=== PATIENT | female | born 1990 | race Caucasian/White ===

== ENCOUNTER 2022-10-22 22:50 | Emergency (ER) | payer MEDICAID ==
[2022-10-22] MEDS ORDERED: Acetaminophen 325 MG Tab PO ONE (23:13)
[2022-10-22 23:38] LABS: BASOPHILS PERCENT AUTO 0.2 % (0.0-1.5); EOSINOPHILS ABSOLUTE AUTO 0.1 K/uL (0.0-0.7); EOSINOPHILS PERCENT AUTO 1.1 % (0.0-7.0); HEMATOCRIT 38.4 % (36.0-46.0); HEMOGLOBIN 13.2 g/dL (12.0-16.0); LYMPHOCYTES PERCENT AUTO 29.3 % (16.0-40.0); MEAN CORPUSCULAR HEMOGLOBIN 29.5 pg (27.0-32.0); MEAN CORPUSCULAR HGB CONC 34.4 g/dL (31.0-37.0); MEAN CORPUSCULAR VOLUME 85.7 fL (80.0-98.0); MONOCYTES ABSOLUTE AUTO 0.6 K/uL (0.0-0.8); MONOCYTES PERCENT AUTO 5.4 % (0.0-15.0); NEUTROPHILS ABSOLUTE AUTO 6.5 K/uL (1.4-5.7); NRBC ABSOLUTE 0 K/uL; PLATELET COUNT,PLT 344 K/uL (150-400); RED BLOOD CELL COUNT 4.48 M/uL (4.30-5.90); WHITE BLOOD CELL COUNT,WBC 10.17 K/uL (4.0-11.0)
[2022-10-23 00:24] LABS: ALANINE AMINOTRANSFERASE,ALT 28 IU/L (14-63); ALBUMIN 3.8 g/dL (3.4-5.0); ALKALINE PHOSPHATASE 87 U/L (46-116); ASPARTATE AMNIOTRANSFERASE,AST 14 IU/L (15-37); BILIRUBIN TOTAL 0.2 mg/dL (0.2-1.0); BLOOD UREA NITROGEN,BUN 14 mg/dL (7.0-18.0); CALCIUM 9.5 mg/dL (8.5-10.1); CARBON DIOXIDE,CO2 26.9 mmol/L (21.0-32.0); CHLORIDE,CL 104 mmol/L (98-107); CREATININE 0.8 mg/dL (0.6-1.0); EST CRCL DRUG DOSING (CG) 72.52 mL/min; ESTIMATED GFR 100 mL/min (>60); GLUCOSE RANDOM 107 mg/dL (74-106); HCG QUANTITATIVE < 1.0 mIU/mL; POTASSIUM,K 3.9 mmol/L (3.5-5.1); PROTEIN TOTAL,TP 7.5 g/dL (6.4-8.2); SODIUM,NA 140 mmol/L (136-145)
== END 2022-10-23 01:26 | disposition home or self-care (01) ==
LOC: MW.ED 22:50
DX: N93.9 Abnormal uterine and vaginal bleeding, unspecified (principal); Z88.2 Allergy status to sulfonamides
CPT/HCPCS: 36415; 80053; 84702; 85025; 86850; 86900; 86901; 99284; A9270; 99283

== ENCOUNTER 2024-01-23 10:19 | Emergency (ER) | payer MEDICAID ==
[2024-01-23 11:48] LABS: CORONAVIRUS COVID-19 NAA NEGATIVE (NEGATIVE); INFLUENZA A NAA NEGATIVE (NEGATIVE); INFLUENZA B NAA NEGATIVE (NEGATIVE); RESPIRATORY SYNCYTIAL VIR NAA NEGATIVE (NEGATIVE)
== END 2024-01-23 11:22 | disposition home or self-care (01) ==
LOC: MW.ED 10:19
DX: L50.9 Urticaria, unspecified (principal); B96.0 Mycoplasma pneumoniae [M. pneumoniae] as the cause of diseases classified elsewhere; R09.81 Nasal congestion; R00.0 Tachycardia, unspecified; F17.210 Nicotine dependence, cigarettes, uncomplicated; Z88.2 Allergy status to sulfonamides; Z88.1 Allergy status to other antibiotic agents; Z75.8 Other problems related to medical facilities and other health care
CPT/HCPCS: 0241U; 99283

== ENCOUNTER 2024-01-26 09:17 | Inpatient (IN) | payer MEDICAID ==
[2024-01-26] MEDS: methylPREDNISolone Sodium Succinate 125 MG/2 ML SDV IVPUSH STA ×2 (10:30→16:18)
[2024-01-26] MEDS: Magnesium Sulfate/Water 2 GM in Premix Bag 1 BAG IV STA (10:30)
[2024-01-26] MEDS: Albuterol 0.083% 2.5 MG/3 ML Neb Soln NEB STA (10:45)
[2024-01-26] MEDS: Albuterol/Ipratropium 3.0-0.5 MG/3 ML Neb Soln NEB STA (10:45)
[2024-01-26 11:00] LABS: BASOPHILS ABSOLUTE AUTO 0.04 K/uL (0.00-0.20); BASOPHILS PERCENT AUTO 0.4 % (0.0-1.0); EOSINOPHILS ABSOLUTE AUTO 0.16 K/uL (0.00-0.45); EOSINOPHILS PERCENT AUTO 1.4 % (0.0-6.0); HEMATOCRIT 35.4 % (37.0-47.0); IMMATURE GRAN ABSOLUTE AUTO 0.08 K/uL (0.00-0.05); IMMATURE GRAN PERCENT AUTO 0.7 % (0.0-0.4); LYMPHOCYTES ABSOLUTE AUTO 1.92 K/uL (1.00-4.80); LYMPHOCYTES PERCENT AUTO 17.2 % (24.0-44.0); MEAN CORPUSCULAR HEMOGLOBIN 28.4 pg (28.0-32.0); MEAN CORPUSCULAR HGB CONC 33.9 g/dL (32.0-36.0); MEAN CORPUSCULAR VOLUME 83.7 fL (83.0-99.0); MEAN PLATELET VOLUME 9.8 fL (9.4-12.3); MONOCYTES ABSOLUTE AUTO 0.69 K/uL (0.00-0.80); MONOCYTES PERCENT AUTO 6.2 % (0.0-8.0); NEUTROPHILS PERCENT AUTO 74.1 % (41.0-71.0); PLATELET COUNT,PLT 388 K/uL (150-400); RED BLOOD CELL COUNT 4.23 M/uL (4.10-5.30); WHITE BLOOD CELL COUNT,WBC 11.19 K/uL (3.9-11.3)
[2024-01-26 11:31] LABS: A/G RATIO 0.7 (0.9-1.6); ALANINE AMINOTRANSFERASE,ALT 43 IU/L (14-63); ALBUMIN 3.2 g/dL (3.4-5.0); ALKALINE PHOSPHATASE 83 U/L (46-116); ASPARTATE AMNIOTRANSFERASE,AST 26 IU/L (15-37); BILIRUBIN TOTAL 0.4 mg/dL (0.2-1.0); BLOOD UREA NITROGEN,BUN 7 mg/dL (7.0-18.0); CALCIUM 9.6 mg/dL (8.5-10.1); CARBON DIOXIDE,CO2 28.7 mmol/L (21.0-32.0); CHLORIDE,CL 101 mmol/L (98-107); CREATININE 0.6 mg/dL (0.6-1.0); EST CRCL DRUG DOSING (CG) 95.79 mL/min; ESTIMATED GFR 121 mL/min (>60); GLUCOSE RANDOM 107 mg/dL (74-106); POTASSIUM,K 3.8 mmol/L (3.5-5.1); PROTEIN TOTAL,TP 7.6 g/dL (6.4-8.2); SODIUM,NA 140 mmol/L (136-145)
[2024-01-26 11:36] LABS: CORONAVIRUS COVID-19 NAA NEGATIVE (NEGATIVE); INFLUENZA A NAA NEGATIVE (NEGATIVE); INFLUENZA B NAA NEGATIVE (NEGATIVE)
[2024-01-26] MEDS: Iopamidol 755 MG/ML 500 ML Multipack Bottle IVPUSH STA (12:11)
[2024-01-26] MEDS: cefTRIAXone 2 GM in Sodium Chloride 0.9% 50 ML IV STA (14:41)
[2024-01-26 15:21] LABS: LACTIC ACID 1.4 mmol/L (0.4-2.0)
[2024-01-26] MEDS ORDERED: Sodium Chloride 0.9% 10 ML Syringe FLUSH PRN (15:47)
[2024-01-26] MEDS ORDERED: Acetaminophen 325 MG Tab PO PRN (15:47)
[2024-01-26] MEDS ORDERED: Sodium Chloride 0.9% 2.5 ML Syringe FLUSH PRN (15:47)
[2024-01-26] MEDS ORDERED: Ondansetron 4 MG/2 ML SDV IVPUSH PRN (15:47)
[2024-01-26] MEDS: Famotidine 20 MG/2 ML SDV IVPUSH STA (16:18)
[2024-01-26] MEDS: diphenhydrAMINE 50 MG/ML SDV ONE (16:19)
[2024-01-26] MEDS: Sodium Chloride 0.9% 1,000 ML IV STA (16:20)
[2024-01-26] MEDS: diphenhydrAMINE 50 MG/ML SDV IVPUSH STA (16:20)
[2024-01-26] MEDS: Levofloxacin/Dextrose 5%-Water 750 MG in Premix Bag 1 BAG IV SCH (17:59)
[2024-01-26] MEDS: Enoxaparin 40 MG/0.4 ML Syringe SUBCUT SCH (18:11)
[2024-01-26] MEDS: Azithromycin 500 MG in Sodium Chloride 0.9% 250 ML IV STA (19:09)
[2024-01-26] MEDS: Benzonatate 100 MG Cap PO SCH (19:47)
[2024-01-26] MEDS: Benzonatate 100 MG Cap ONE (19:47)
[2024-01-26] MEDS ORDERED: Benzonatate 100 MG Cap PO PRN (21:28)
[2024-01-27 06:01] LABS: BASOPHILS ABSOLUTE AUTO 0.02 K/uL (0.00-0.20); BASOPHILS PERCENT AUTO 0.1 % (0.0-1.0); HEMATOCRIT 35.6 % (37.0-47.0); HEMOGLOBIN 11.7 g/dL (12.0-16.0); IMMATURE GRAN ABSOLUTE AUTO 0.43 K/uL (0.00-0.05); IMMATURE GRAN PERCENT AUTO 2.5 % (0.0-0.4); LYMPHOCYTES PERCENT AUTO 6.3 % (24.0-44.0); MEAN CORPUSCULAR HGB CONC 32.9 g/dL (32.0-36.0); MEAN CORPUSCULAR VOLUME 85.2 fL (83.0-99.0); MONOCYTES ABSOLUTE AUTO 0.36 K/uL (0.00-0.80); MONOCYTES PERCENT AUTO 2.1 % (0.0-8.0); NEUTROPHILS ABSOLUTE AUTO 15.46 K/uL (1.80-7.70); PLATELET COUNT,PLT 406 K/uL (150-400); RED BLOOD CELL COUNT 4.18 M/uL (4.10-5.30); WHITE BLOOD CELL COUNT,WBC 17.37 K/uL (3.9-11.3)
[2024-01-27 06:20] LABS: CALCIUM 9.1 mg/dL (8.5-10.1); CARBON DIOXIDE,CO2 25.8 mmol/L (21.0-32.0); CREATININE 0.7 mg/dL (0.6-1.0); EST CRCL DRUG DOSING (CG) 82.11 mL/min; POTASSIUM,K 4.1 mmol/L (3.5-5.1)
[2024-01-27] MEDS: Albuterol/Ipratropium 3.0-0.5 MG/3 ML Neb Soln NEB PRN (11:18)
[2024-01-27] MEDS ORDERED: Azithromycin 500 MG in Sodium Chloride 0.9% 250 ML IV SCH (12:00)
[2024-01-27] MEDS ORDERED: cefTRIAXone 2 GM in Sodium Chloride 0.9% 50 ML IV SCH (13:00)
[2024-01-28 06:02] LABS: HEMATOCRIT 32.7 % (37.0-47.0); HEMOGLOBIN 10.9 g/dL (12.0-16.0); MEAN CORPUSCULAR HEMOGLOBIN 28.5 pg (28.0-32.0); MEAN CORPUSCULAR HGB CONC 33.3 g/dL (32.0-36.0); MEAN CORPUSCULAR VOLUME 85.6 fL (83.0-99.0); MEAN PLATELET VOLUME 9.7 fL (9.4-12.3); NRBC ABSOLUTE 0.02 K/uL (0.00-0.02); NRBC PERCENT 0.1 /100WBC (0.0-0.2); PLATELET COUNT,PLT 390 K/uL (150-400); RED BLOOD CELL COUNT 3.82 M/uL (4.10-5.30); WHITE BLOOD CELL COUNT,WBC 18.76 K/uL (3.9-11.3)
[2024-01-28 06:19] LABS: CALCIUM 8.8 mg/dL (8.5-10.1); CARBON DIOXIDE,CO2 28.4 mmol/L (21.0-32.0); CREATININE 0.7 mg/dL (0.6-1.0); EST CRCL DRUG DOSING (CG) 82.11 mL/min; POTASSIUM,K 4.1 mmol/L (3.5-5.1)
[2024-01-28 06:31] LABS: BAND ABSOLUTE MAN 0.75; BAND PERCENT MAN 4 %; LYMPHOCYTES ABSOLUTE MAN 2.63 K/uL (1.00-4.80); LYMPHOCYTES PERCENT MAN 14 % (24-44); MONOCYTES ABSOLUTE MAN 0.38 K/uL (0.00-0.80); MONOCYTES PERCENT MAN 2 % (0-8); SEG NEUTROPHILS ABSOLUTE MAN 15.01 K/uL (1.80-7.70); SEG NEUTROPHILS PERCENT MAN 80 % (41-71)
[2024-01-28 08:02] LABS: BORDETELLA PARAPERT IS1001 Not Detected (Not Detected)
[2024-01-29 20:02] LABS: QNTIFERON MITOGEN MIN NIL 0.36 IU/mL; QNTIFERON NIL 0.01 IU/mL; QNTIFERON TB GOLD PLUS Indeterminate (Negative)
== END 2024-01-28 12:40 | disposition home or self-care (01) | DRG 193 ==
LOC: MW.ED 09:17 → MW.MS 14:25
PROVIDERS: ADMIT Internal Medicine; ATTEND Internal Medicine
DX: J15.7 Pneumonia due to Mycoplasma pneumoniae (principal); J18.9 Pneumonia, unspecified organism; U07.0 Vaping-related disorder; J96.01 Acute respiratory failure with hypoxia; F17.210 Nicotine dependence, cigarettes, uncomplicated; Z88.0 Allergy status to penicillin; Z75.8 Other problems related to medical facilities and other health care; Z88.2 Allergy status to sulfonamides; Z88.1 Allergy status to other antibiotic agents; Z90.89 Acquired absence of other organs; Z90.49 Acquired absence of other specified parts of digestive tract
CPT/HCPCS: 0240U; 36415; 71275; 80048; 80053; 83605; 84484; 84703; 85025; 86480; 87040; 87070; 87205; 87389; 87486; 87581; 87633; 87899; 93005; 94640; 96365; 96375; 99285; 93010; 99222; 99232; 99239; A9270-GY; J0696; J1200; J1956; J2919; J3475; J3490; J7030; J7620-GY; Q9967

== ENCOUNTER 2024-09-11 20:33 | Emergency (ER) | payer MEDICAID | END 2024-09-11 21:24 | disposition home or self-care (01) | LOC: MW.ED 20:33 | DX: R03.0 Elevated blood-pressure reading, without diagnosis of hypertension (principal); F43.9 Reaction to severe stress, unspecified; F17.210 Nicotine dependence, cigarettes, uncomplicated; F41.9 Anxiety disorder, unspecified; Z88.2 Allergy status to sulfonamides; Z88.0 Allergy status to penicillin; Z88.8 Allergy status to other drugs, medicaments and biological substances | CPT/HCPCS: 99282; 99283 ==

== ENCOUNTER 2025-04-30 19:51 | Emergency (ER) | payer MEDICAID | END 2025-05-01 02:20 | disposition home or self-care (01) | LOC: MW.ED 19:51 | DX: R05.9 Cough, unspecified (principal); Z88.2 Allergy status to sulfonamides; Z88.1 Allergy status to other antibiotic agents; Z88.8 Allergy status to other drugs, medicaments and biological substances; Z79.899 Other long term (current) drug therapy | CPT/HCPCS: 71046; 71046-26; 87428-QW; 99283 ==